=== PATIENT | male | born 1940 | race Hispanic/Latino ===

== ENCOUNTER 2019-07-04 12:26 | Emergency (ER) | payer MEDICARE ==
[2019-07-04 12:37] VITALS: BP 165/79
[2019-07-04] MEDS ORDERED: ASPIRIN PO ONE (12:38)
--- NOTE | 2019-07-04 12:39 | Event Note ---
ED Screening Note Date of service: 07/04/19 Time: 12:34 ED Screening Note: This is a 78 y.o. M. that presents to the ER with chest pain for 30 minutes. Patient reports right sided chest pain radiating to back. He took nitro pill at hotel. PMH Afib, arthritis, HTN Patient states he is traveling via car from [place]. This initial assessment/diagnostic orders/clinical plan/treatment(s) is/are subject to change based on patients health status, clinical progression and re- assessment by fellow clinical providers in the ED. Further treatment and workup at subsequent clinical providers discretion. Patient/guardian urged not to elope from the ED as their condition may be serious if not clinically assessed and managed. Initial orders include: Labs, EKG, & CXR
[2019-07-04 13:26] LABS: Basophils % (Auto) 0.3 % (0.0-1.8); Eosinophils % (Auto) 0.4 % (0.0-4.3); Hematocrit 38.3 % (35.5-45.6); Hemoglobin 12.8 gm/dl (11.8-15.2); Lymphocytes # (Auto) 0.8 K/mm3 (1.2-5.4); Lymphocytes % (Auto) 9.4 % (13.4-35.0); Mean Corpuscular HGB Conc 34 % (32-34); Mean Corpuscular Volume 90 fl (84-94); Monocytes # (Auto) 0.7 K/mm3 (0.0-0.8); Monocytes % (Auto) 8.6 % (0.0-7.3); Platelet Count 216 K/mm3 (140-440); Red Blood Count 4.27 M/mm3 (3.65-5.03)
--- NOTE | 2019-07-04 13:36 | XRay Report ---
CHEST 1 VIEW INDICATION: Chest Pain. COMPARISON: None FINDINGS: Support devices: None. Heart: Within normal limits. The aorta is mildly ectatic. Lungs/Pleura: No acute air space or interstitial disease. 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 IMPRESSION: No acute findings. Signer Name: George Jimenez Jr, MD Signed: 07/04/2019 1:32 PM Workstation Name: [id number]
[2019-07-04 13:49] LABS: BUN/Creatinine Ratio 19; Blood Urea Nitrogen 17 mg/dL (9-20); Calcium 8.8 mg/dL (8.4-10.2); Hemolysis Index 3
== END 2019-07-04 16:00 ==
LOC: ED 12:26
DX: R50.9 Fever, unspecified (principal); Z53.21 Procedure and treatment not carried out due to patient leaving prior to being seen by health care provider
CPT/HCPCS: 36415; 71045; 80048; 84484; 85025; 93005; 93010